=== PATIENT | male | born 1950 | race Caucasian/White ===

== ENCOUNTER 2022-02-15 15:16 | Emergency (ER) | payer MEDICARE, BC ==
[2022-02-15] MEDS: Take Home: Doxycycline 100 MG Tab, 4 Tab Pack PO ONE (16:11)
== END 2022-02-15 16:24 | disposition home or self-care (01) ==
LOC: CC.ED 15:16
DX: S00.86XA Insect bite (nonvenomous) of other part of head, initial encounter (principal); E78.00 Pure hypercholesterolemia, unspecified; I10 Essential (primary) hypertension; Z79.899 Other long term (current) drug therapy; W57.XXXA Bitten or stung by nonvenomous insect and other nonvenomous arthropods, initial encounter
CPT/HCPCS: 99281; 99283; A9270-GY

== ENCOUNTER 2024-07-18 10:02 | Emergency (ER) | payer MEDICARE, BC ==
[2024-07-18 10:26] LABS: BASOPHILS ABSOLUTE AUTO 0.09 10^3/uL (0.00-0.50); BASOPHILS PERCENT AUTO 0.9 % (0-1); EOSINOPHILS ABSOLUTE AUTO 0.48 10^3/uL (0.00-1.50); EOSINOPHILS PERCENT AUTO 4.9 % (0-6); HEMATOCRIT 44.5 % (42.0-52.0); HEMOGLOBIN 14.6 g/dL (14.0-18.0); IMMATURE GRAN ABSOLUTE AUTO 0.02 10^3/uL (0.00-0.49); IMMATURE GRAN PERCENT AUTO 0.2 % (0.0-4.9); LYMPHOCYTES ABSOLUTE AUTO 2.27 10^3/uL (0.60-5.00); LYMPHOCYTES PERCENT AUTO 23.2 % (24-44); MEAN CORPUSCULAR HGB CONC 32.8 g/dL (32.0-36.0); MEAN CORPUSCULAR VOLUME 91.6 fL (83.0-97.0); MONOCYTES ABSOLUTE AUTO 0.95 10^3/uL (0.00-1.50); MONOCYTES PERCENT AUTO 9.7 % (0-10); NEUTROPHILS ABSOLUTE AUTO 5.96 x10^3/uL (1.80-8.00); NEUTROPHILS PERCENT AUTO 61.1 % (41-71); PLATELET COUNT,PLT 238 10^3/uL (150-400); RED BLOOD CELL COUNT 4.86 x10^6/uL (4.50-6.00); WHITE BLOOD CELL COUNT,WBC 9.8 10^3/uL (4.0-11.0)
[2024-07-18 10:38] LABS: INR 0.99 (0.92-1.18); PROTHROMBIN TIME 10.4 SEC (9.3-11.3); PTT,PARTIAL THROMBOPLSTIN TIME 23.2 SEC (20.0-30.0)
[2024-07-18 10:45] LABS: ALBUMIN 3.5 g/dL (3.4-5.0); BILIRUBIN TOTAL 0.3 mg/dL (0.0-1.0); CALCIUM 8.5 mg/dL (8.4-10.1); CREATININE 0.9 mg/dL (0.7-1.3); EST CRCL DRUG DOSING (CG) 70.92 mL/min; POTASSIUM,K 3.3 mEq/L (3.5-5.0); PROTEIN TOTAL,TP 7.1 g/dL (6.4-8.2)
== END 2024-07-18 12:15 | disposition home or self-care (01) ==
LOC: CC.ED 10:02
DX: I20.9 Angina pectoris, unspecified (principal); I16.0 Hypertensive urgency; E78.00 Pure hypercholesterolemia, unspecified; Z87.891 Personal history of nicotine dependence; Z79.899 Other long term (current) drug therapy
CPT/HCPCS: 36415; 71046; 80053; 83690; 84484; 85025; 85610; 85730; 93005; 93010; 99284